=== PATIENT | male | born 1970 | race Hispanic/Latino ===

== ENCOUNTER 2018-03-02 05:07 | Emergency (ER) | payer BC ==
[2018-03-02 05:22] VITALS: BMI 30.5
[2018-03-02] MEDS ORDERED: Sodium Chloride 0.9% 1,000 ML IV STA (05:46)
[2018-03-02 06:16] LABS: BASO # 0.1 K/uL (0.0-0.2); BASO % 0.5 % (0.0-2.0); EOS # 0.3 K/uL (0.0-0.7); EOS % 2.7 % (0.0-4.0); HEMOGLOBIN 15.8 g/dL (12.0-18.0); LYMPH # 1.5 K/uL (1.0-4.3); LYMPH % 11.9 % (20.0-40.0); MEAN CELL VOLUME 87.4 fl (80.0-94.0); MEAN CORPUSCULAR HEMOGLOBIN 29.8 pg (27.0-31.0); MEAN CORPUSCULAR HGB CONC 34.1 g/dL (33.0-37.0); MEAN PLATELET VOLUME 9.6 fl (7.2-11.7); MONO # 1.3 K/uL (0.0-0.8); MONO % 10.7 % (0.0-10.0); NEUT # 9.3 K/uL (1.8-7.0); NEUT % 74.2 % (50.0-75.0); RBC 5.31 Mil/uL (4.40-5.90); RED CELL DISTRIBUTION WIDTH 13.8 % (11.5-14.5); WHITE BLOOD COUNT 12.6 K/uL (4.8-10.8)
[2018-03-02 06:24] LABS: ALB/GLOB RATIO 1.1 (1.0-2.1); ALBUMIN 4.5 g/dL (3.5-5.0); ALT/SGPT 31 U/L (21-72); AST/SGOT 19 U/L (17-59); BILIRUBIN,DIRECT 0.3 mg/ml (0.0-0.4); BLOOD UREA NITROGEN 17 mg/dl (9-20); CALCIUM 9.2 mg/dL (8.4-10.2); GFR NON-AFRICAN AMERICAN 54
[2018-03-02 06:25] LABS: URINE BACTERIA RARE (<OCC); URINE BILIRUBIN NEGATIVE (NEGATIVE); URINE BLOOD MODERATE (NEGATIVE); URINE CLARITY CLEAR (Clear); URINE COLOR YELLOW (YELLOW); URINE GLUCOSE (UA) NEG (Normal); URINE LEUKOCYTE ESTERASE NEG Leu/uL (Negative); URINE PROTEIN NEGATIVE (NEGATIVE); URINE UROBILINOGEN 0.2-1.0 mg/dL (0.2-1.0)
--- NOTE | 2018-03-02 06:27 | ED PDOC ---
HPI: Back Time Seen by Provider: 03/02/18 05:13 Chief Complaint (Nursing): Male Genitourinary Chief Complaint (Provider): Abdominal Pain History Per: Patient History/Exam Limitations: no limitations Onset/Duration Of Symptoms: Days (x1) Additional Complaint(s): Pepe Austin, a 47 year old male with history of hypercholesterolemia, kidney stones and fatty liver, presents to the ED with superpubic pain, dysuria and left flank pain that comes and goes onset yesterday. Patient states that 2 weeks ago he received a CT with PO contrast and the next day his stomach was upset and has been since then. He denies nausea, vomiting, fever and hematuria. No further medical complaints. PMD:Hieu Griffin Past Medical History Reviewed: Historical Data, Nursing Documentation, Vital Signs Vital Signs: Last Vital Signs Temp 98.6 F 03/02/18 05:22 Pulse 79 03/02/18 05:22 Resp 18 03/02/18 05:22 BP 144/97 H 03/02/18 05:22 Pulse Ox 100 03/02/18 05:22 - Medical History PMH: HTN, Hypercholesterolemia, Kidney Stones Other PMH: fatty liver - Surgical History Surgical History: No Surg Hx - Family History Family History: States: Unknown Family Hx - Immunization History Hx Tetanus Toxoid Vaccination: No Hx Influenza Vaccination: No Hx Pneumococcal Vaccination: No - Allergies Allergies/Adverse Reactions: Allergies Allergy/AdvReac Type Severity Reaction Status Date / Time iodine Allergy RASH Verified 03/02/18 05:22 Review of Systems ROS Statement: Except As Marked, All Systems Reviewed And Found Negative Constitutional: Negative for: Fever Gastrointestinal: Positive for: Abdominal Pain (left flank, superpubic). Negative for: Nausea, Vomiting Genitourinary Male: Positive for: Dysuria. Negative for: Hematuria Physical Exam - Reviewed Nursing Documentation Reviewed: Yes Vital Signs Reviewed: Yes - Physical Exam Appears: Positive for: Well, Non-toxic, No Acute Distress Head Exam: Positive for: ATRAUMATIC, NORMAL INSPECTION, NORMOCEPHALIC Skin: Positive for: Normal Color, Warm, DRY Eye Exam: Positive for: EOMI, Normal appearance, PERRL ENT: Positive for: Normal ENT Inspection Neck: Positive for: Normal, Painless ROM Cardiovascular/Chest: Positive for: Regular Rate, Rhythm Respiratory: Positive for: Normal Breath Sounds. Negative for: Respiratory Distress Gastrointestinal/Abdominal: Positive for: Normal Exam, Soft Back: Positive for: Normal Inspection Extremity: Positive for: Normal ROM Neurologic/Psych: Positive for: Alert, Oriented - Laboratory Results Result Diagrams: 03/02/18 06:13 - ECG O2 Sat by Pulse Oximetry: 100 (RA) Pulse Ox Interpretation: Normal Medical Decision Making Medical Decision Making: Time: 5:13 A/P: well appearing male presenting with urinary symptoms, flank pain differential includes UTI vs pyelonephritis vs kidney stones --CT abd/pelvis --BMP --Liver profile --CBC w/ differential --Sodium chloride 1000 IV --Toradol 30 mg IVP --Urinalysis 0700 -patient signed out to Dr. Carroll by provider ---- Scribe Attestation: Documented by Meli Chu, acting as a scribe for Servando Wren MD. Provider Scribe Attestation: All medical record entries made by the Scribe were at my direction and personally dictated by me. I have reviewed the chart and agree that the record accurately reflects my personal performance of the history, physical exam, medical decision making, and the department course for this patient. I have also personally directed, reviewed, and agree with the discharge instructions and disposition. Disposition - Disposition Forms: [employer] (Spanish)
--- NOTE | 2018-03-02 07:35 | ED PDOC ---
- Laboratory Results Result Diagrams: 03/02/18 06:13 03/02/18 06:13 Interpretation Of Abn Labs: 12.6 wbc Urine dip results: Positive for: Blood - ECG O2 Sat by Pulse Oximetry: 98 Pulse Ox Interpretation: Normal - Progress ED Course And Treament: 700: Stable. Took over care from Dr. Wren. Fu on imaging. Here with back pain and abd pain. CT: 4.2 mm and 3.9 mm left uvj with mild hydro. 918: Stable. Alert. Pain free. Spoke with Dr. Ragland as no call return for [address]. Ragland wants pt. to be evaluated by residential tech and possible admit. 940: Stable. Surgery saw pt. and spoke with Dr. Ragland. They want pt. dc with flomax and fu with him outpt. Pt. is pain free and able to urinate. Tolerated PO. Disposition - Clinical Impression Clinical Impression: Urolithiasis - POA Present On Arrival: None - Disposition Referrals: Stephane Ragland MD [Medical Doctor] - 03/05/18 Disposition: Routine/Home Disposition Time: 09:00 Condition: STABLE Additional Instructions: Return if not better in 3 days. Prescriptions: Ibuprofen [Motrin] 600 mg PO TID 7 Days tab Tamsulosin [Flomax] 0.4 mg PO DAILY PRN #6 cap PRN Reason: Pain Instructions: Kidney Stones in Adults Forms: [employer] (Australian)
[2018-03-02 07:48] VITALS: PULSE 72
[2018-03-02 08:01] VITALS: O2SAT 98
[2018-03-02 09:56] VITALS: BP 130/74; RESP 17; TEMP 97.4
--- NOTE | 2018-03-02 13:18 | CT ---
PROCEDURE: CT Abdomen and Pelvis without Oral or IV contrast. HISTORY: suprapubic, L flank pain COMPARISON: None available. TECHNIQUE: Contiguous axial images of the abdomen and pelvis. No oral or IV contrast administered. Coronal and Sagittal reformats generated and reviewed. Radiation dose: Total exam DLP = 726.96 mGy-cm. This CT exam was performed using one or more of the following dose reduction techniques: Automated exposure control, adjustment of the mA and/or kV according to patient size, and/or use of iterative reconstruction technique. FINDINGS: There is limited evaluation of the solid organs without the administration of IV contrast. LOWER THORAX: No visible consolidation, pleural effusion, or pneumothorax. LIVER: Several too small to characterize hepatic dome hypodensity; statistically likely cysts or hemangiomas. Hepatomegaly. GALLBLADDER AND BILE DUCTS: Unremarkable unenhanced appearance. PANCREAS: Unremarkable unenhanced appearance. SPLEEN: Unremarkable unenhanced appearance. ADRENALS: Unremarkable unenhanced appearance. KIDNEYS AND URETERS: There are 2 4 mm calculi at the left UV J with proximal hydroureter nephrosis. No right-sided hydroureter or hydronephrosis. Mildly thick-walled under distended urinary bladder. BLADDER: See above. REPRODUCTIVE: The prostate gland appears unremarkable. Prominence of the seminal vesicles. APPENDIX: The appendix appears within normal limits of caliber. No secondary signs of acute appendicitis. BOWEL: The stomach is nondistended. Lack of oral contrast limits evaluation for bowel pathology. The bowel loops appear within normal limits of caliber without evidence of intestinal obstruction. Diverticulosis without CT evidence of acute diverticulitis. PERITONEUM: No significant free fluid. No definite free air. LYMPH NODES: No bulky lymphadenopathy identified. VASCULATURE: No significant atherosclerotic calcifications identified. No aortic aneurysm. BONES: No acute osseous abnormality is detected. OTHER FINDINGS: None. IMPRESSION: There are 2 4 mm calculi at the left UV J with proximal hydroureter nephrosis. No right-sided hydroureter or hydronephrosis. No hydronephrosis or obstructing renal calculus. Mildly thick-walled under distended urinary bladder. Hepatomegaly. Several too small to characterize hepatic dome hypodensity; statistically likely cysts or hemangiomas. Diverticulosis without CT evidence of acute diverticulitis. Prominence of the seminal vesicles. Additional findings as above. Preliminary impression was provided by [facility].
== END 2018-03-02 09:59 | disposition home or self-care (01) ==
LOC: H.ER 05:07
DX: N20.9 Urinary calculus, unspecified (principal); E78.00 Pure hypercholesterolemia, unspecified; I10 Essential (primary) hypertension
CPT/HCPCS: 74176; 80048; 80076; 81003; 85025; 87086; 96374; 99285; J1885; J7030